=== PATIENT | female | born 1965 | race Caucasian/White ===

== ENCOUNTER 2018-08-04 14:28 | Emergency (ER) | payer OTHER ==
[~2018-08-04] VITALS: Ht 165.1 cm; Wt 70.3 kg
[~2018-08-04 14:28] MED LIST: KETO10TA2 PO; LEVSIN0.125 MG PO; PRILOSEC20 MG PO; SYNTHROID150 MCG PO; TRAMADOL HCL-AP1 TAB PO
== END 2018-08-04 19:30 | disposition home or self-care (01) ==
LOC: ER 14:28
DX: K29.70 Gastritis, unspecified, without bleeding (principal); R51 Headache

== ENCOUNTER 2022-03-13 09:58 | Outpatient (CLI) | payer OTHER | END 2022-03-13 09:59 | disposition home or self-care (01) | LOC: NUCLEAR 09:58 | PROVIDERS: ATTEND Internal Medicine Rheumatology | DX: M25.50 Pain in unspecified joint (principal) | CPT/HCPCS: 78315; A9503 ==

== ENCOUNTER 2022-10-20 09:41 | Emergency (ER) | payer OTHER ==
[~2022-10-20] VITALS: Ht 165.1 cm; Wt 70.3 kg
[2022-10-20] MEDS ORDERED: BUDESONIDE0.5 MG/2 M IH (12:58)
[2022-10-20] MEDS ORDERED: MUCINEX1200 MG PO (12:58)
[2022-10-20] MEDS ORDERED: ALBUTEROL2.5 MG/3 M IH (12:58)
[2022-10-20] MEDS ORDERED: DELSYM30 MG/5 M1 PO (12:58)
== END 2022-10-20 13:27 | disposition home or self-care (01) ==
LOC: ER 09:41
DX: B34.9 Viral infection, unspecified (principal); R06.02 Shortness of breath; Z20.822 Contact with and (suspected) exposure to COVID-19